=== PATIENT | female | born 1950 | race Hispanic/Latino ===

== ENCOUNTER → 2017-11-04 | Day surgery (SDC) | payer MEDICARE, OTHER ==
[2017-11-03 10:39] LABS: BASOPHILS # (AUTO) 0.1 (0.0-0.1); BASOPHILS % 0.8 % (0.0-1.0); EOSINOPHILS # (AUTO) 0.2 (0.0-0.4); EOSINOPHILS % 2.5 % (0.0-6.0); HEMATOCRIT 41.1 % (34.2-44.1); HEMOGLOBIN 14.3 g/dL (12.0-16.0); LYMPHOCYTES # (AUTO) 1.9 (1.0-3.2); LYMPHOCYTES % 29.4 % (18.0-39.1); MEAN CORPUSCULAR HEMOGLOBIN 30.2 pg (28-32); MEAN CORPUSCULAR HGB CONC 34.8 g/dL (31-35); MEAN CORPUSCULAR VOLUME 86.9 fL (81-99); MONOCYTES # (AUTO) 0.5 (0.2-0.8); MONOCYTES % 7.8 % (4.4-11.3); NEUTROPHILS # (AUTO) 3.9 (2.1-6.9); NEUTROPHILS % 59.3 % (38.7-80.0); PLATELET COUNT 200 x10e3/uL (140-360); RED BLOOD COUNT 4.73 x10e6/uL (3.6-5.1); RED CELL DISTRIBUTION WIDTH 12.4 % (11.7-14.4)
[~2017-11-04] MED LIST: ASPIR 8181 MG PO; ATORVASTATIN PO; FENTANYL CITRATE/PF 100MCG/2 ML INJ ONE; LIDOCAINE HCL 2% LOCAL INJ 5 ML SDV VIAL INJ ONE; METOPROLOL SUCC50 MG PO; MIDAZOLAM HCL 2 MG/2 ML VIAL ONE; ONDANSETRON HCL INJ 2 MG/ML VIAL ONE; PROPOFOL IV EMULSION 10 MG/ML 50 ML VIAL ONE
--- NOTE | 2017-11-04 14:01 | Operative Report ---
DATE OF PROCEDURE: November 04, 2017 REFERRING PHYSICIAN: Dr. Parisa Tilley. PROCEDURE PERFORMED: 1. Esophagogastroduodenoscopy with biopsies. 2. Colonoscopy with polypectomy. INDICATIONS FOR ESOPHAGOGASTRODUODENOSCOPY: Heartburn indigestion. INDICATIONS FOR COLONOSCOPY: Colorectal cancer screening, lower abdominal pain. MEDICATION: Patient was done under MAC. Please see anesthesiologist's note. PROCEDURE: With the patient in the left lateral decubitus position, the flexible fiberoptic Olympus gastroscope was introduced into the esophagus under direct visualization without any difficulty. There was some patchy erythema noted in the distal esophagus. Some focal nodularity was noted at the GE junction, and that was biopsied. The scope was then advanced with ease into the stomach. Mucosa overlying the antrum and the body revealed some patchy erythema and low-grade to moderate edema, and biopsies were obtained and sent to stain for H. pylori. Some hyperplastic-appearing gastric polyps were noted in the body of the stomach, and some were partially excised with the cold biopsy forceps. Pylorus appeared to be of normal contour and shape, was intubated with ease, and the scope was advanced all the way to the 2nd portion of the duodenum. The scope was then withdrawn slowly. Mucosa overlying the proximal 2nd portion as well as the duodenal bulb appeared to be within normal limits. The scope was then withdrawn back into the stomach and retroflexed, and the mucosa overlying the fundus and the cardia appeared to be within normal limits. The scope was then straightened out. The stomach was decompressed. The scope was subsequently withdrawn. Patient tolerated the procedure well. IMPRESSION: 1. Distal esophagitis, mild. 2. Focal nodularity gastroesophageal junction biopsied. 3. Gastritis biopsied. Biopsies sent to stain for H. pylori. 4. Gastric polyps, body. Some were partially excised with the cold biopsy forceps. PLAN: Follow up histology. Continue omeprazole 40 mg 1 p.o. q.a.m. a.c. Add Carafate 1 gram p.o. a.c. t.i.d. and nightly. The patient was then turned around and after adequate lubrication of the anal canal, a flexible fiberoptic Olympus colonoscope was inserted into the rectum with ease and advanced all the way to the cecum. It was then withdrawn slowly. Mucosa overlying the cecum, ascending colon, transverse colon and descending colon grossly appeared to be within normal limits. Some diverticular disease was noted in the distal descending and the sigmoid colon. One polyp was snared and 1 polyp was hot biopsied from the sigmoid colon. The rectum appeared to be within normal limits. The scope was then retroflexed into the distal rectum and small internal hemorrhoids were noted, none of which was actively bleeding. The scope was then straightened out. It was subsequently withdrawn. Patient tolerated the procedure well. IMPRESSION: 1. Diverticulosis. 2. Sigmoid polyps times 2, one snared, one hot biopsied. 3. Internal hemorrhoids, none actively bleeding. PLAN: Follow up histology. Initiate high-fiber low-fat diet. Initiate high-fiber supplement. Patient will need a followup colonoscopy in 3 years. Job#: [id number] EV cc:PARISA TILLEY MD
== END | disposition home or self-care (01) ==
LOC: OR 08:45
PROVIDERS: ATTEND Internal Medicine Gastroenterology
DX: R12 Heartburn (principal); R10.31 Right lower quadrant pain; K20.9 Esophagitis, unspecified; K22.9 Disease of esophagus, unspecified; K29.50 Unspecified chronic gastritis without bleeding; K31.7 Polyp of stomach and duodenum; K57.30 Diverticulosis of large intestine without perforation or abscess without bleeding; K64.8 Other hemorrhoids; K31.9 Disease of stomach and duodenum, unspecified; K63.5 Polyp of colon; Z01.810 Encounter for preprocedural cardiovascular examination; Z01.812 Encounter for preprocedural laboratory examination; M19.90 Unspecified osteoarthritis, unspecified site; R06.02 Shortness of breath; E78.5 Hyperlipidemia, unspecified; E78.00 Pure hypercholesterolemia, unspecified; Z79.82 Long term (current) use of aspirin; Z85.42 Personal history of malignant neoplasm of other parts of uterus; Z90.710 Acquired absence of both cervix and uterus; Z88.0 Allergy status to penicillin; Z88.2 Allergy status to sulfonamides
CPT/HCPCS: 36415; 43239; 45384; 45385; 85025; 88305; 88312; 93005; J2001; J2250; J2405

== ENCOUNTER → 2021-11-25 | Outpatient (CLI) | payer MEDICARE, OTHER ==
[~2021-11-25] MED LIST changes: -FENTANYL CITRATE/PF 100MCG/2 ML INJ ONE; -LIDOCAINE HCL 2% LOCAL INJ 5 ML SDV VIAL INJ ONE; -MIDAZOLAM HCL 2 MG/2 ML VIAL ONE; -ONDANSETRON HCL INJ 2 MG/ML VIAL ONE; -PROPOFOL IV EMULSION 10 MG/ML 50 ML VIAL ONE
== END ==
LOC: RAD 14:19
PROVIDERS: ATTEND Internal Medicine
DX: R05.9 Cough, unspecified (principal)
CPT/HCPCS: 71046

== ENCOUNTER → 2021-12-15 | Outpatient (CLI) | payer MEDICARE, OTHER | LOC: US 08:46 | PROVIDERS: ATTEND Internal Medicine | DX: R10.13 Epigastric pain (principal) | CPT/HCPCS: 76700 ==

== ENCOUNTER → 2021-12-24 | Outpatient (CLI) | payer MEDICARE, OTHER | LOC: CT 15:50 | PROVIDERS: ATTEND Internal Medicine | DX: N20.0 Calculus of kidney (principal) | CPT/HCPCS: 74176 ==

== ENCOUNTER → 2022-07-16 | Day surgery (SDC) | payer MEDICARE, OTHER ==
[2022-07-15 13:19] LABS: BASOPHILS % 0.4 % (0.0-1.0); EOSINOPHILS # (AUTO) 0.1 (0.0-0.4); EOSINOPHILS % 2.4 % (0.0-6.0); HEMATOCRIT 39.8 % (34.2-44.1); HEMOGLOBIN 12.7 g/dL (12.0-16.0); MEAN CORPUSCULAR HEMOGLOBIN 30.6 pg (28-32); MEAN CORPUSCULAR HGB CONC 31.9 g/dL (31-35); MEAN CORPUSCULAR VOLUME 95.9 fL (81-99); MONOCYTES # (AUTO) 0.5 (0.2-0.8); MONOCYTES % 9.8 % (4.4-11.3); NEUTROPHILS # (AUTO) 3.4 (2.1-6.9); NEUTROPHILS % 68.2 % (38.7-80.0); PLATELET COUNT 166 x10e3/uL (140-360); RED BLOOD COUNT 4.15 x10e6/uL (3.6-5.1); RED CELL DISTRIBUTION WIDTH 13.1 % (11.7-14.4)
[2022-07-15 13:42] LABS: ANION GAP 15.3 mmol/L (8-16); CALCIUM 9.6 mg/dL (8.4-10.2); CREATININE, SERUM 0.86 mg/dL (0.57-1.11); POTASSIUM 4.3 mmol/L (3.5-5.1)
[~2022-07-16] MED LIST changes: +CARVEDILOL3.125 MG PO; +DEXAMETHASONE SOD PHOS INJ 4 MG/ML SDV ONE; +EFFIENT10 MG PO; +FENTANYL CITRATE/PF 100MCG/2 ML INJ ONE; +FISH OIL 1,0001 EAC7; +IOPAMIDOL 610MG/1ML 300 MG/ML VIAL IV ONE; +LEVOFLOXACIN 500MG/D5W 100ML 100 ML IV ONE; +LIDOCAINE HCL 2% LOCAL INJ 5 ML SDV VIAL INJ ONE; +LOSARTAN POTASS25 MG PO; +MULTI-VITAMIN1 EACH PO; +NEURONTIN100 MG PO; +OMEPRAZOLE40 MG PO; +ONDANSETRON HCL INJ 2MG/ML 2ML 2 MG/ML VIAL ONE; +PHENAZOPYRIDINE HCL 100 MG TAB ONE; +POVIDONE IODINE 0.05% 0.05 % ML PO ONE; +PROPOFOL IV EMULSION 10 MG/ML 20 ML VIAL ONE; +SEVOFLURANE INHAL SOLN 250 ML PEN BTL ONE; +VITAMIN D PO
[2022-07-16 16:45] VITALS: BP 135/82
== END | disposition home or self-care (01) ==
LOC: OR 11:29
PROVIDERS: ATTEND Urology
DX: N39.0 Urinary tract infection, site not specified (principal); N32.89 Other specified disorders of bladder; N95.2 Postmenopausal atrophic vaginitis; N81.6 Rectocele; N81.10 Cystocele, unspecified; I10 Essential (primary) hypertension; I25.2 Old myocardial infarction; E78.5 Hyperlipidemia, unspecified; I25.10 Atherosclerotic heart disease of native coronary artery without angina pectoris; K57.90 Diverticulosis of intestine, part unspecified, without perforation or abscess without bleeding; M19.90 Unspecified osteoarthritis, unspecified site; F41.9 Anxiety disorder, unspecified; Z88.6 Allergy status to analgesic agent; Z88.0 Allergy status to penicillin; Z88.2 Allergy status to sulfonamides; Z90.710 Acquired absence of both cervix and uterus; Z01.812 Encounter for preprocedural laboratory examination; Z79.82 Long term (current) use of aspirin; Z79.899 Other long term (current) drug therapy; Z85.42 Personal history of malignant neoplasm of other parts of uterus; Z92.3 Personal history of irradiation; Z92.21 Personal history of antineoplastic chemotherapy; Z95.5 Presence of coronary angioplasty implant and graft
CPT/HCPCS: 36415; 52005; 74420; 80048; 85025; 87086; C1758; C1769; J1100; J1956; J2001; J2405; J2704; J3010; Q9967

== ENCOUNTER → 2024-09-05 | Outpatient (REF) | payer MEDICARE, OTHER ==
[~2024-09-05] MED LIST changes: -DEXAMETHASONE SOD PHOS INJ 4 MG/ML SDV ONE; -FENTANYL CITRATE/PF 100MCG/2 ML INJ ONE; -IOPAMIDOL 610MG/1ML 300 MG/ML VIAL IV ONE; -LEVOFLOXACIN 500MG/D5W 100ML 100 ML IV ONE; -LIDOCAINE HCL 2% LOCAL INJ 5 ML SDV VIAL INJ ONE; -ONDANSETRON HCL INJ 2MG/ML 2ML 2 MG/ML VIAL ONE; -PHENAZOPYRIDINE HCL 100 MG TAB ONE; -POVIDONE IODINE 0.05% 0.05 % ML PO ONE; -PROPOFOL IV EMULSION 10 MG/ML 20 ML VIAL ONE; -SEVOFLURANE INHAL SOLN 250 ML PEN BTL ONE
== END ==
LOC: RAD 10:58
PROVIDERS: ATTEND Internal Medicine
DX: M54.50 Low back pain, unspecified (principal); M25.551 Pain in right hip
CPT/HCPCS: 72110

== ENCOUNTER → 2024-09-27 | Outpatient (REF) | payer MEDICARE, OTHER | LOC: CT 11:45 | PROVIDERS: ATTEND Internal Medicine | DX: M51.362 Other intervertebral disc degeneration, lumbar region with discogenic back pain and lower extremity pain (principal) | CPT/HCPCS: 72131 ==